=== PATIENT | male | born 1970 | race Caucasian/White ===

== ENCOUNTER 2018-02-01 09:46 | Inpatient (IN) | payer MEDICAID, OTHER ==
[2018-02-01 10:43] LABS: HEMOGLOBIN 15.2 g/dL (12.0-18.0); MEAN CELL VOLUME 97.2 fL (80.0-94.0); MEAN CORPUSCULAR HEMOGLOBIN 33.8 pg (27.0-31.0); MEAN CORPUSCULAR HGB CONC 34.7 g/dL (33.0-37.0); MEAN PLATELET VOLUME 8.5 fL (7.2-11.7); RBC 4.51 Mil/uL (4.40-5.90); RED CELL DISTRIBUTION WIDTH 13.8 % (11.5-14.5); WHITE BLOOD COUNT 5.9 K/uL (4.8-10.8)
[2018-02-01 10:48] LABS: ALB/GLOB RATIO 1.4 (1.0-2.1); ALBUMIN 4.9 g/dL (3.5-5.0); ALT/SGPT 230 U/L (21-72); AST/SGOT 336 U/L (17-59); BLOOD UREA NITROGEN 13 mg/dL (9-20); CALCIUM 9.9 mg/dl (8.6-10.4); GFR NON-AFRICAN AMERICAN > 60
[2018-02-01 11:02] LABS: SQUAMOUS EPITHIAL 1 /hpf (0-5); URINE BACTERIA RARE (<OCC); URINE BILIRUBIN 1+ (NEGATIVE); URINE BLOOD NEGATIVE (NEGATIVE); URINE CLARITY Hazy (Clear); URINE COLOR Amber (YELLOW); URINE GLUCOSE (UA) NORMAL (Normal); URINE HYALINE CAST >20 /lpf (0-2); URINE LEUKOCYTE ESTERASE 1+ Leu/uL (Negative); URINE PROTEIN 3+ mg/dL (NEGATIVE)
[2018-02-01 11:04] LABS: BARBITURATES, UR NEGATIVE (NEGATIVE); BENZODIAZEPINES, UR NEGATIVE (NEGATIVE); OPIATES, UR NEGATIVE (NEGATIVE); PHENCYCLIDINE, UR NEGATIVE (NEGATIVE)
[2018-02-01 11:07] LABS: BASO # 0.1 K/uL (0.0-0.2); BASO % 2.4 % (0.0-2.0); EOS % 0.5 % (0.0-4.0); LYMPH # 1.8 K/uL (1.0-4.3); LYMPH % 30.3 % (20.0-40.0); MONO # 0.7 K/uL (0.0-0.8); MONO % 12.2 % (0.0-10.0); NEUT # 3.2 K/uL (1.8-7.0); NEUT % 54.6 % (50.0-75.0); NRBC % 0.3 % (0.0-2.0)
--- NOTE | 2018-02-01 11:10 | C.PDOC ---
Time Seen by Provider: 02/01/18 10:06 Chief Complaint (Nursing): Substance Abuse Past Medical History Vital Signs: Last Vital Signs Temp 98.3 F 02/01/18 09:58 Pulse 95 H 02/01/18 09:58 Resp 18 02/01/18 09:58 BP 133/94 H 02/01/18 09:58 Pulse Ox 98 02/01/18 09:58 - Social History Hx Alcohol Use: Yes Hx Substance Use: No - Immunization History Hx Tetanus Toxoid Vaccination: No Hx Influenza Vaccination: No Hx Pneumococcal Vaccination: No ED Course And Treatment - Laboratory Results Result Diagrams: 02/01/18 10:27 02/01/18 10:27 O2 Sat by Pulse Oximetry: 98 Disposition - Disposition
[2018-02-01] MEDS ORDERED: Potassium Chloride 20 mEq ER Tab PO STA (11:14)
--- NOTE | 2018-02-01 11:14 | C.PDOC ---
History Of Present Illness <Mason Robbins - Last Filed: 02/01/18 18:25> <Kathe Alex - Last Filed: 02/01/18 18:33> 47 y/o male presents to ED requesting detox from ETOH. Patient reports last drink was earlier this morning and denies history of withdrawal seizures, chest pain, sob, SI/HI or any other complaints at this time. (Mason Robbins) 47 y/o male presents to ED requesting detox from ETOH. Patient reports last drink was earlier this morning. Denies history of withdrawal seizures. Notes he feels well right now. Denies drug use. Denies PMH. Denies chest pain, sob, SI/HI, hallucinations, or any other complaints at this time. (Kathe Alex) <Mason Robbins - Last Filed: 02/01/18 18:25> History Per: Patient History/Exam Limitations: no limitations Onset/Duration Of Symptoms: Days Current Symptoms Are (Timing): Still Present Suicide/Self Injury Attempted (Context): None Modifying Factor(s): Alcohol <Kathe Alex - Last Filed: 02/01/18 18:33> Time Seen by Provider: 02/01/18 10:06 Chief Complaint (Nursing): Substance Abuse Past Medical History Reviewed: Historical Data, Nursing Documentation, Vital Signs - Medical History PMH: No Chronic Diseases Surgical History: No Surg Hx Family History: States: No Known Family Hx - Social History Hx Alcohol Use: Yes Hx Substance Use: No - Immunization History Hx Tetanus Toxoid Vaccination: No Hx Influenza Vaccination: No Hx Pneumococcal Vaccination: No <Kathe Alex - Last Filed: 02/01/18 18:33> Vital Signs: Last Vital Signs Temp 98.3 F 02/01/18 16:44 Pulse 85 02/01/18 16:44 Resp 18 02/01/18 16:44 BP 127/76 02/01/18 16:44 Pulse Ox 97 02/01/18 16:44 Review Of Systems Constitutional: Negative for: Fever, Chills Cardiovascular: Negative for: Chest Pain Respiratory: Negative for: Shortness of Breath Gastrointestinal: Negative for: Nausea, Vomiting Skin: Negative for: Rash Psych: Positive for: Other (substance abuse). Negative for: Withdrawal <Kathe Alex - Last Filed: 02/01/18 18:33> Physical Exam - Physical Exam Appears: Non-toxic, No Acute Distress, Other (no tremors noted) Skin: Warm, Dry, No Rash Head: Atraumatic, Normacephalic Eye(s): bilateral: Normal Inspection, EOMI Nose: Normal Oral Mucosa: Moist Neck: Normal ROM, Supple Chest: Symmetrical Cardiovascular: Rhythm Regular Respiratory: Normal Breath Sounds, No Rales, No Rhonchi, No Wheezing Gastrointestinal/Abdominal: Soft, No Tenderness, No Guarding, No Rebound Extremity: Normal ROM Neurological/Psych: Oriented x3, Normal Speech, Normal Cognition <MicheletcoreyKathe - Last Filed: 02/01/18 18:33> ED Course And Treatment - Laboratory Results Result Diagrams: 02/01/18 10:27 02/01/18 10:27 <Mason Robbins Teresita - Last Filed: 02/01/18 18:25> - Laboratory Results Result Diagrams: 02/01/18 10:27 02/01/18 10:27 O2 Sat by Pulse Oximetry: 98 (RA) Pulse Ox Interpretation: Normal Progress Note: Case discussed with Dr Robbins who evaluated labs and agreed upon plan and treatment. Pt was instructed to have repeat UA with urologist on an outpt basis. Patient admitted to Dr. Ontiveros for ETOH dependence. <MicheletcoreyKathe - Last Filed: 02/01/18 18:33> Disposition - Disposition Disposition Time: 12:00 <Mason Robbins Teresita - Last Filed: 02/01/18 18:25> <MicheletcoreyKathe - Last Filed: 02/01/18 18:33> - Disposition Disposition: HOSPITALIZED Condition: STABLE - Clinical Impression Clinical Impression: Alcohol abuse <Mason Robbins Teresita - Last Filed: 02/01/18 18:25> - PA / [employer]ATION [employer] / Resident Statement MD/DO has reviewed & agrees with the documentation as recorded. - Scribe Statement The provider has reviewed the documentation as recorded by the Scribe <MicheletChon [email or web address] - Last Filed: 02/01/18 18:33> - Scribe Statement Kathy Valenzuela All medical record entries made by the Scribe were at my direction and personally dictated by me. I have reviewed the chart and agree that the record accurately reflects my personal performance of the history, physical exam, medical decision making, and the department course for this patient. I have also personally directed, reviewed, and agree with the discharge instructions and disposition. (Mason Robbins) Kathy Valenzuela All medical record entries made by the Scribe were at my direction and personally dictated by me. I have reviewed the chart and agree that the record accurately reflects my personal performance of the history, physical exam, medical decision making, and the department course for this patient. I have also personally directed, reviewed, and agree with the discharge instructions and disposition. (Kathe Alex)
[2018-02-01] MEDS ORDERED: Potassium Chloride 20 mEq ER Tab PO ONE (11:30)
[2018-02-01] MEDS ORDERED: Tmp-Smz 800 mg-160 mg DS Tab PO STA (12:23)
[2018-02-01] MEDS ORDERED: Tmp-Smz 800 mg-160 mg DS Tab ONE (12:28)
--- NOTE | 2018-02-01 14:15 | PCM.BM ---
<Brooklynn Kennedy - Last Filed: 02/01/18 14:15> Treatment Plan Problems - Problems identified on initial assessmt potential for alcohol withdrawals Date Initiated: 02/01/18 Assessment reference: NA Status: Active Treatment assets and liabiliti Patient Assests: adapts well, cooperative, insightful, motivated, ADL independent, physically healthy, negotiates basic needs Patient Liabilities: substance abuse - Milieu Protocol Maintain good personal hygiene: daily Encourage regular showers, daily Remind patient to perform daily oral care, daily Assist patient to perform ADL's Conduct patient checks and document Observation sheet: Q15 minutes Maintain personal safety: every shift Educate patient to report safety concerns to staff, every shift Monitor environment for contraband/sharps Medication safety: Monitor for expected outcome, potential side effects: every shift, Assess barriers to learning: every shift, Assess readiness for medication education: every shift <Juanita Ibarra - Last Filed: 02/02/18 13:37> - Diagnosis (1) Alcohol use disorder, severe, dependence Status: Acute Interventions: 02/02/18 13:38 * Assess 7x/week regarding severity of withdrawal * Educate regarding risks, benefits, side effects and alternatives of medications * Use Motivational Interviewing for abstinence * Use CBT for relapse prevention * Medication management for withdrawal symptoms * Encourage medication assisted treatment * <Stephenie Lee - Last Filed: 02/03/18 14:21> Family Contact Family involvement: Famliy/SO not involved - Goals for Treatment Patient goals for treatment: Complete detox and apply for inpatient or outpatient treatment program. Discharge/Continuing Care - Education Needs Education Needs: Patient Medication, Patient Diagnosis/Disease Process, Patient Coping Skills, Patient Anger Management skills, Patient Placement options, Patient Community resources, Patient Other (grief coping) - Discharge Discharge Criteria: Free of agitation, Normal sleep pattern, Ability to care for self, No longer exhibiting s/s of withdrawal, Reduction of target symptoms Discharge to:: Other - Additional Comments 02/03/18 14:20 Pt. is undecided whether he wants outpatient or inpatient but will work with counseling staff when a determination is made. - Treatment Team Participation Discussed with Family/SO: No Was Patient/Family/SO present at Treatment Team Meeting: Yes
--- NOTE | 2018-02-01 17:15 | PCM.PSYCH ---
Initial Psychiatric Evaluation - Initial Psychiatric Evaluation Type of Admission: Voluntary Legal Status: Capacity Chief Complaint (in patient's own words): "I want detox from alcohol" History of Present Illness and Precipitating Events: This is a 47-year-old male, with children, who lives temporarily with his parents in [place]. He is employed but he has taken a personal leave of absence due to medical reasons. Patient is here for detox from alcohol. He states that he has been drinking a fifth of vodka every day in the last 4 years. He smokes 6-10 cigarettes per day with the alcohol. He denies any other drug use. Patient states that he feels well today. However, he complains about palpitations, dizziness, hot and cold flashes, tremor of the extremities when he does not drink alcohol. He reports that all of his symptoms disappear when he starts drinking. Patient reports that he tried detox once in August, but he was not successful. He denies any past rehabilitation or psychiatric hospitalization. He reports that he had his last drink this morning. Patient reports of withdrawal symptoms including abdominal cramps, anxiety, headaches and sweating. Patient reports irritability but he denies any suicidal ideation or any homicidal ideation. He denies any manic symptoms. He denies any auditory or visual hallucinations or any psychotic symptoms. Current Medications: Active Medications Generic Name Dose Route Start Last Admin Trade Name Freq PRN Reason Stop Dose Admin Folic Acid 1 mg 02/02/18 10:00 Folic Acid PO DAILY NANCIE Lorazepam 2 mg 02/01/18 16:30 Ativan PO 02/06/18 16:29 Q4 NANCIE Taper Lorazepam 1 mg 02/01/18 16:28 Ativan PO Q4H PRN Symptoms of alcohol withdrawl Multivitamins 1 tab 02/02/18 10:00 Hexavitamin PO DAILY NANCIE Thiamine HCl 100 mg 02/02/18 10:00 Vitamin B1 Tab PO DAILY NANCIE Trazodone HCl 50 mg 02/01/18 16:28 Desyrel PO HS PRN Insomnia Past Psychiatric History - Past Psychiatric History Previous Treatment History: Inpatient Pertinent Medical Hx (Current Medical&Sleep Prob, Allergies): Allergies Allergy/AdvReac Type Severity Reaction Status Date / Time No Known Allergies Allergy Verified 02/01/18 10:04 No Known Home Med 02/01/18 Patient denies any past medical history. Review of Systems - Review of Systems All systems: reviewed and no additional remarkable complaints except - Psychiatric Psychiatric: Anxiety, Irritability. absent: Suicidal Ideation Mental Status Examination - Personal Presentation Personal Presentation: Looks stated age - Affect Affect: Constricted - Motor Activity Motor Activity: Calm - Reliability in Providing Information Reliability in Providing Information: Fair - Speech Speech: Organized - Mood Mood: Anxious - Formal Thought Process Formal Thought Process: No Impairment - Obsessions/Compulsions Obsessions: No Compulsions: No - Cognitive Functions Orientation: Person, Place, Situation, Time Sensorium: Alert Attention/Concentration: Attentive Abstract Thinking: [place] Estimate of Intelligence: Below average Judgement: Imparied, as evidence by: Poor judgement, Intact, as evidence by: Insight regarding need for hospitalization - Risk Risk: Withdrawal, Diminished functioning - Limitations Limitations: Living alone DSM 5 DX - DSM 5 DSM 5 Diagnosis: Alcohol use d/o- severe Alcohol withdrawal - Recommended/Plan of Treatment Treatment Recommendations and Plan of Treatment: Alcohol use d/o- severe Alcohol withdrawal CBT Attend groups and activities Supportive therapy and psychoeducation [place] for abstinence Encourage MAT Refer to rehab or IOP, and self-help groups Smoking cessation with [place] Nicotine patch if needed Ativan taper Gabapentin for augmentation if needed As needed medications All risks, benefits and alternatives of the meds discussed, and the pt agreed and understood. - Smoking Cessation Smoking Cessation Initiated: No
[2018-02-02] MEDS: Multiple Vitamins Tab PO SCH (10:21)
--- NOTE | 2018-02-02 13:32 | PCM.PYCHPN ---
Psychiatric Progress Note - Psychiatric Progress Note Patient seen today, length of contact: 16 min Patient Chief Complaint: "I'm sick" Problems Identified/Issues Discussed: The pt is seen, chart reviewed, case discussed with staff. The pt is compliant with medications and reports no side-effects. Symptoms are improving but needs more time to stabilize. Pt attends groups and activities. Support given, psycho-education provided. After care discussed. He wants to try rehab first. Medication Change: Yes (detox changes daily) Medical Record Reviewed: Yes Mental Status Examination - Cognitive Function Orientation: Person, Place, Situation, Time Memory: Impaired Attention: WNL Concentration: Poor Association: WNL Fund of Knowledge: WNL - Mood Mood: Anxious - Affect Affect: Constricted - Speech Speech: Appropriate - Formal Thought Process Formal Thought Process: No Impairment - Suicidal Ideation Suicidal Ideation: No - Homicidal Ideation Homicidal Ideation: No Goal/Treatment Plan - Goal/Treatment Plan Need for Continued Stay: Discharge may exacerbated symptoms, Severe functional impairment Progress Toward Problem(s) and Goals/Treatment Plan: CBT Attend groups and activities Supportive therapy and psychoeducation [place] for abstinence Encourage MAT Refer to rehab or IOP, and self-help groups Smoking cessation with [place] Nicotine patch if needed Ativan taper Gabapentin for augmentation if needed As needed medications All risks, benefits and alternatives of the meds discussed, and the pt agreed and understood. - Smoking Cessation Smoking Cessation Initiated: Yes
[2018-02-03] MEDS: Multiple Vitamins Tab PO SCH (09:08)
--- NOTE | 2018-02-03 12:20 | PCM.PYCHPN ---
Psychiatric Progress Note - Psychiatric Progress Note Patient seen today, length of contact: 16 min Patient Chief Complaint: "I'm not well" Problems Identified/Issues Discussed: The pt is seen, chart reviewed, case discussed with staff. He was somewhat confused The pt is compliant with medications and reports no side-effects. Symptoms are improving but needs more time to stabilize. After care discussed, support and psychoeducation given. Medication Change: Yes (detox changes daily) Medical Record Reviewed: Yes Mental Status Examination - Cognitive Function Orientation: Person, Place, Situation Memory: Impaired Attention: WNL Concentration: Poor Association: WNL Fund of Knowledge: WNL - Mood Mood: Anxious - Affect Affect: Constricted - Speech Speech: Appropriate - Formal Thought Process Formal Thought Process: No Impairment - Suicidal Ideation Suicidal Ideation: No - Homicidal Ideation Homicidal Ideation: No Goal/Treatment Plan - Goal/Treatment Plan Need for Continued Stay: Discharge may exacerbated symptoms, Severe functional impairment Progress Toward Problem(s) and Goals/Treatment Plan: CBT Attend groups and activities Supportive therapy and psychoeducation [place] for abstinence Encourage MAT Refer to rehab or IOP, and self-help groups Smoking cessation with [place] Nicotine patch if needed Ativan taper Gabapentin for augmentation if needed As needed medications All risks, benefits and alternatives of the meds discussed, and the pt agreed and understood.
[2018-02-03 14:50] LABS: ALB/GLOB RATIO 1.4 (1.0-2.1); ALBUMIN 4.7 g/dL (3.5-5.0); ALT/SGPT 137 U/L (21-72); AST/SGOT 128 U/L (17-59); BLOOD UREA NITROGEN 12 mg/dL (9-20); CALCIUM 11.2 mg/dl (8.6-10.4); GFR NON-AFRICAN AMERICAN > 60
[2018-02-04] MEDS: Multiple Vitamins Tab PO SCH (09:27)
[2018-02-05] MEDS: Multiple Vitamins Tab PO SCH (09:22)
[2018-02-06] MEDS: Multiple Vitamins Tab PO SCH (09:50)
--- NOTE | 2018-02-06 18:49 | PCM.PYCHPN ---
Psychiatric Progress Note - Psychiatric Progress Note Patient seen today, length of contact: 15 minutes Patient Chief Complaint: I'm feeling much better. Problems Identified/Issues Discussed: Patient seen, chart reviewed, case discussed with the staff. Issues related to illness and treatment were discussed with the patient and staff. Reported compliant with treatment with no adverse affects. Tolerating treatment very well. Patient reported feeling little better with the treatment. Calm and cooperative. Awake, alert and oriented 3. No psychomotor activity, good eye contact, memory intact. Aftercare discussed with the patient. Denied any delusions, auditory or visual hallucinations, suicidal ideations or homicidal ideations at the time of evaluation. Medical Problems: None reported Diagnostic Results: Reviewed DSM 5 Symptoms Update: Improving with treatment Medication Change: No Medical Record Reviewed: Yes Mental Status Examination - Cognitive Function Orientation: Person, Place, Situation, Time Memory: Intact Attention: WNL Concentration: WNL Association: WNL Fund of Knowledge: [facility] Decription of patient's judgement and insights: Fair - Mood Mood: Neutral - Affect Affect: Other (Appropriate) - Speech Speech: Appropriate - Formal Thought Process Formal Thought Process: No Impairment Psychotic Thoughts and Behaviors: None - Suicidal Ideation Suicidal Ideation: No - Homicidal Ideation Homicidal Ideation: No Goal/Treatment Plan - Goal/Treatment Plan Need for Continued Stay: Remain at risks for inpatient hospitalization, Discharge may exacerbated symptoms, Severe functional impairment Progress Toward Problem(s) and Goals/Treatment Plan: Patient education. Supportive therapy. CBT for relapse prevention. [place] for abstinence. Continue treatment as before. Patient will go to [facility] for follow-up care after discharge from the hospital. Estimated Date of D/C: 02/07/18 - Smoking Cessation Smoking Cessation Initiated: Yes
--- NOTE | 2018-02-06 22:28 | PCM.PYCHPN ---
Psychiatric Progress Note - Psychiatric Progress Note Patient seen today, length of contact: 18 min Patient Chief Complaint: "I'm tired" Problems Identified/Issues Discussed: The pt is seen, chart reviewed, case discussed with staff. Support given, CBT and PA used briefly No new symptoms reported, improving slowly and needs more time Still somewaht confused - likely at risk for DT, meds adjusted No SEs from medications, risks discussed. After care discussed Medication Change: Yes (detox changes daily) Medical Record Reviewed: Yes Mental Status Examination - Cognitive Function Orientation: Person, Place, Situation Memory: Impaired Attention: WNL Concentration: Poor Association: WNL Fund of Knowledge: WNL - Mood Mood: Anxious - Affect Affect: Constricted - Speech Speech: Appropriate - Formal Thought Process Formal Thought Process: No Impairment - Suicidal Ideation Suicidal Ideation: No - Homicidal Ideation Homicidal Ideation: No Goal/Treatment Plan - Goal/Treatment Plan Need for Continued Stay: Discharge may exacerbated symptoms, Severe functional impairment Progress Toward Problem(s) and Goals/Treatment Plan: CBT Attend groups and activities Supportive therapy and psychoeducation [place] for abstinence Encourage MAT Refer to rehab or IOP, and self-help groups Smoking cessation with [place] Nicotine patch if needed Ativan taper Gabapentin for augmentation if needed As needed medications All risks, benefits and alternatives of the meds discussed, and the pt agreed and understood. Estimated Date of D/C: 02/07/18
--- NOTE | 2018-02-07 00:45 | CP.PCM.HP ---
<Sindhu Mitchell - Last Filed: 02/07/18 07:40> History of Present Illness - History of Present Illness History of Present Illness: History and Physical - Hospitalist Service HPI: Patient is a 47 year old male with past medical history of alcohol dependence who presented to the hospital requesting detox from alcohol. His last drink was the morning of 02/01/18. While on the detox unit, rapid response was called for new onset seizure (refer to LEGAL SPECIALIST note for more details). Patient was given Ativan 2mg IM x 1. Patient does not have a history of seizure disorder. Post seizure activity, patient states that he wasn't feeling well. He does not recall the events that occurred. He does admit to having pain on the right side of his tongue. Denies any loss of bowel or bladder function. Patient states that he has never had a seizure in the past. Denies headaches, dizziness, cp, palpitations, son, abdominal pain, urinary symptoms, changes in bowel habits. PMD: None Allergies: NKDA Medications: Denies Medical History: Alcohol dependence Surgical History: Denies Social History: Smokes 6 cig/day for many years, a fifth of vodka every day in the last 4 years, denies drug use; recently Family History: Denies Present on Admission - Present on Admission Any Indicators Present on Admission: No Past Patient History - Past Social History Smoking Status: Light Smoker < 10 Cigarettes Daily - CARDIAC Hx Cardiac Disorders: No Hx Hypertension: No - PULMONARY Hx Tuberculosis: No - NEUROLOGICAL HX Cerebrovascular Accident: No Hx Seizures: No - HEMATOLOGICAL/ONCOLOGICAL Hx Cancer: No Hx Human Immunodeficiency Virus (HIV): No - MUSCULOSKELETAL/RHEUMATOLOGICAL Hx Falls: No - GENITOURINARY/GYNECOLOGICAL Hx Sexually Transmitted Disorders: No - PSYCHIATRIC Hx Substance Use: No - SURGICAL HISTORY Hx Surgeries: Yes Other/Comment: groin cyst excision - ANESTHESIA Hx Anesthesia: Yes Hx Anesthesia Reactions: No Hx Malignant Hyperthermia: No Meds Allergies/Adverse Reactions: Allergies Allergy/AdvReac Type Severity Reaction Status Date / Time No Known Allergies Allergy Verified 02/01/18 10:04 Physical Exam - Constitutional Appears: Non-toxic, No Acute Distress - Head Exam Head Exam: ATRAUMATIC, NORMAL INSPECTION, NORMOCEPHALIC - Eye Exam Eye Exam: EOMI, Normal appearance Pupil Exam: NORMAL ACCOMODATION - ENT Exam ENT Exam: Mucous Membranes Moist Additional comments: Right lateral side of tongue with small abrasion, not actively bleeding - Neck Exam Neck exam: Positive for: Full Rom - Respiratory Exam Respiratory Exam: Clear to Auscultation Bilateral, NORMAL BREATHING PATTERN. absent: Rales, Rhonchi, Wheezes - Cardiovascular Exam Cardiovascular Exam: REGULAR RHYTHM, +S1, +S2. absent: Systolic Murmur - GI/Abdominal Exam GI & Abdominal Exam: Normal Bowel Sounds, Soft. absent: Guarding, Rebound, Rigid, Tenderness - Extremities Exam Extremities exam: Positive for: normal inspection, pedal pulses present - Back Exam Back exam: NORMAL INSPECTION - Neurological Exam Neurological exam: Alert, CN II-XII Intact, Oriented x3 - Psychiatric Exam Psychiatric exam: Normal Affect, Normal Mood - Skin Skin Exam: Dry, Normal Color, Warm Results - Vital Signs Recent Vital Signs: Last Vital Signs Temp 98.6 F 02/06/18 16:42 Pulse 87 02/06/18 16:42 Resp 18 02/06/18 16:42 BP 130/80 02/06/18 16:42 Pulse Ox 99 02/06/18 16:42 - Labs Result Diagrams: 02/07/18 02:41 02/07/18 02:41 Assessment & Plan - Assessment and Plan (Free Text) Assessment: A/P: Patient is a 47 year old male with past medical history of alcohol dependence who was admitted 02/01/18 for detox from alcohol who now presents with new onset seizure. New Onset Seizure -Transfer to Telemetry -STAT CBC, CMP, Mg, Phos ordered -CT head w/o contrast ordered -Ativan 2mg Q6H IVP prn seizure activity -NS @ 100cc/hr -EEG, EKG ordered -Neurology on consult, Dr Roa, help appreciated -Seizure precautions, aspiration precautions, Neuro checks q4H Alcohol dependence/Alcohol withdrawal -Alcohol levels was 287 on admission -Continue Thiamine 100mg PO daily, Folic acid 1mg PO daily, Multivitamins -[facility] protocol -Management per psych team Elevated LFTs -Likely secondary to alcohol abuse -Trending down -Avoid hepatotoxic agents Plan discussed with Dr Corrie Mitchell DO PGY-2 <Negrito Denton - Last Filed: 02/07/18 10:18> Results - Vital Signs Recent Vital Signs: Last Vital Signs Temp 98.2 F 10/01/18 09:23 Pulse 80 02/07/18 09:23 Resp 20 02/07/18 09:23 BP 104/69 02/07/18 09:23 Pulse Ox 95 02/07/18 09:23 - Labs Result Diagrams: 02/07/18 02:41 02/07/18 02:41 Labs: Laboratory Results - last 24 hr 02/07/18 02/07/18 02/07/18 02:02 02:41 02:41 WBC 8.1 RBC 3.61 L Hgb 12.4 D Hct 35.6 MCV 98.6 H MCH 34.2 H MCHC 34.7 RDW 13.6 Plt Count 279 D MPV 7.8 Neut % (Auto) 68.1 Lymph % (Auto) 11.1 L [place] % (Auto) 19.6 H Eos % (Auto) 0.4 Baso % (Auto) 0.8 Neut # (Auto) 5.5 Lymph # (Auto) 0.9 L [place] # (Auto) 1.6 H Eos # (Auto) 0.0 Baso # (Auto) 0.1 Sodium 140 Potassium 4.6 Chloride 105 Carbon Dioxide 24 Anion Gap 16 BUN 15 Creatinine 0.6 L Est GFR ( Amer) > 60 Est GFR (Non-Af Amer) > 60 POC Glucose (mg/dL) 115 H Random Glucose 112 H Calcium 9.8 Phosphorus 2.5 Magnesium 1.6 Total Bilirubin 0.6 AST 60 H D ALT 94 H D Alkaline Phosphatase 64 Total Protein 7.0 Albumin 4.0 Globulin 3.0 Albumin/Globulin Ratio 1.3 Assessment & Plan - Date & Time Date: 02/07/18 (I have seen and examined the patient. I agree with the findings and plan of care as documented by Dr. Mitchell. Patient in detox due to alcohol abuse. Rapid response called due to new onset seizure. Transfer to hospitalist service. Ativan prn. Consult to neuro. Consult to psych. Monitor for acute changes.) Time: 10:15 Attending/Attestation - Attestation I have personally seen and examined this patient.: Yes I have fully participated in the care of the patient.: Yes I have reviewed all pertinent clinical information: Yes
[2018-02-07 01:38] VITALS: RESP 20
--- NOTE | 2018-02-07 02:34 | PCM.RRT ---
AQUATIC FACILITY MANAGER Nurses Assessment - Situation Date: 02/07/18 Time AQUATIC FACILITY MANAGER was called: 12:16 AQUATIC FACILITY MANAGER Responder Arrival Time:: 12:18 AQUATIC FACILITY MANAGER Location:: Med/Detox Room Number: 762A AQUATIC FACILITY MANAGER Reason for Call: Change in Mental Status AQUATIC FACILITY MANAGER Called By: RN - IV IV Inserted during AQUATIC FACILITY MANAGER?: No - Respiratory AQUATIC FACILITY MANAGER Delivery Method: Room Air Was the Patient Placed on a Ventilator?: No - Medication Medications Administered During AQUATIC FACILITY MANAGER: Ativan 2mg IM - Diagnostic Test Ordered EKG: Yes Chest X-Ray: No CT Scan: Yes - Stat Labs Ordered AQUATIC FACILITY MANAGER Stat Labs Ordered: CBC AQUATIC FACILITY MANAGER Other Labs Ordered: Magnesium, Phosphorus, CMP CPR started during AQUATIC FACILITY MANAGER?: No - Vital Signs Vital Signs: Rapid Response Vital Sign Blood Pressure 138/84 Pulse Rate 130 I.Reason for AQUATIC FACILITY MANAGER - A) Acute Change in Patient: Subjective: Rapid Response Note Rapid response was called at 12:16 am for change in mental status. When Rapid response team arrived patient was on the floor having a seizure. Patient was unresponsive and having full body shakes. Order was given to administer Ativan 2mg IM x 1. Post-seizure, when asked patient was not aware of what happened. He is alert and oriented x 3. He states that he has never had a seizure before in the past. We will transfer patient to telemetry. - Respiratory Oxygen Delivery Method: Room Air - Constitutional Appears: No Acute Distress - Head Head Exam: ATRAUMATIC, NORMAL INSPECTION - Eyes Eye Exam: EOMI, Normal appearance - Respiratory Exam Respiratory Exam: Clear to Ausculation Bilateral, NORMAL BREATHING PATTERN. absent: Rales, Rhonchi, Wheezes - Cardiovascular Exam Cardiovascular Exam: REGULAR RHYTHM, +S1, +S2. absent: Murmur - GI/Abdominal Exam GI & Abdominal Exam: Soft. absent: Guarding, Rigid, Tenderness, Rebound - Neurological Exam Neurological Exam: Alert, Awake, CN II-XII Intact, Oriented x3 - Extremities Exam Extremities Exam: Normal Inspection Plan - Assessment of Findings&Treatment Plan A/P: 47 year old male with past medical history of alcohol dependence who was admitted to detox on 02/01 for alcohol withdrawal. Patient now with witnessed new onset seizure. Denies history of seizure in the past. -We will transfer patient to telemetry -STAT labs ordered: CBC, CMP, Mg, Phos -CT head, EKG and EEG ordered -Continue Ativan 2mg IVP Q6H prn seizure activity -Neurology on consult, Dr Roa, help appreciated Plan discussed with Dr Corrie Mitchell DO PGY-2
[2018-02-07 02:43] LABS: BASO # 0.1 K/uL (0.0-0.2); BASO % 0.8 % (0.0-2.0); EOS % 0.4 % (0.0-4.0); HEMOGLOBIN 12.4 g/dL (12.0-18.0); LYMPH # 0.9 K/uL (1.0-4.3); LYMPH % 11.1 % (20.0-40.0); MEAN CELL VOLUME 98.6 fL (80.0-94.0); MEAN CORPUSCULAR HEMOGLOBIN 34.2 pg (27.0-31.0); MEAN CORPUSCULAR HGB CONC 34.7 g/dL (33.0-37.0); MEAN PLATELET VOLUME 7.8 fL (7.2-11.7); MONO # 1.6 K/uL (0.0-0.8); MONO % 19.6 % (0.0-10.0); NEUT # 5.5 K/uL (1.8-7.0); NEUT % 68.1 % (50.0-75.0); RBC 3.61 Mil/uL (4.40-5.90); RED CELL DISTRIBUTION WIDTH 13.6 % (11.5-14.5); WHITE BLOOD COUNT 8.1 K/uL (4.8-10.8)
[2018-02-07 03:12] LABS: ALB/GLOB RATIO 1.3 (1.0-2.1); ALT/SGPT 94 U/L (21-72); AST/SGOT 60 U/L (17-59); BLOOD UREA NITROGEN 15 mg/dL (9-20); CALCIUM 9.8 mg/dl (8.6-10.4); GFR NON-AFRICAN AMERICAN > 60
[2018-02-07] MEDS: Magnesium Sulfate 1 gm in D5W 1 GM/100 ML BAG IVPB SCH ×2 (04:16→05:09)
[2018-02-07] MEDS: Sodium Chloride 0.9% 1,000 ML IV SCH ×2 (04:16→04:22)
--- NOTE | 2018-02-07 09:37 | CT ---
Date of service: 02/07/2018 PROCEDURE: CT HEAD WITHOUT CONTRAST. HISTORY: New onset seizure COMPARISON: None available. TECHNIQUE: Axial computed tomography images were obtained through the head/brain without intravenous contrast. Radiation dose: Total exam DLP = 1151 mGy-cm. This CT exam was performed using one or more of the following dose reduction techniques: Automated exposure control, adjustment of the mA and/or kV according to patient size, and/or use of iterative reconstruction technique. FINDINGS: HEMORRHAGE: No intracranial hemorrhage. BRAIN: No mass effect or edema. No atrophy or chronic microvascular ischemic changes. Punctate right basal ganglia calcification. VENTRICLES: Unremarkable. No hydrocephalus. CALVARIUM: Unremarkable. PARANASAL SINUSES: Unremarkable as visualized. No significant inflammatory changes. MASTOID AIR CELLS: Unremarkable as visualized. No inflammatory changes. OTHER FINDINGS: None. IMPRESSION: No acute intracranial abnormality. If symptoms persist, consider correlation with MRI.
[2018-02-07] MEDS: Multiple Vitamins Tab PO SCH (10:29)
--- NOTE | 2018-02-07 10:30 | CP.PCM.CON ---
<RobsonRaffi - Last Filed: 02/07/18 15:03> History of Present Illness - History of Present Illness History of Present Illness: Neurology Consult Note: Dr. Roa's Service 47 year old male with a past medical history of alcohol abuse who was admitted for seizures. Patient initially came into the hospital for detox from alcohol. Patient was in the process of detoxing from alcohol when last night he reported feeling anxious. The next thing he remembers is waking up in the bed. He briana es losing bowel or bladder function, but does reports biting his tongue during the seizure. He reports this being his first seizure. He denies any chest pain, shortness of breath, fevers, chills, nausea, vomiting, palpitations, or any other complaints. PMD: None Allergies: NKDA Medications: Denies Medical History: Alcohol dependence Surgical History: Denies Social History: Smokes 6 cig/day for many years, a fifth of vodka every day in the last 4 years, denies drug use; recently Family History: Denies Review of Systems - Constitutional Constitutional: absent: Daytime Sleepiness, Headache - EENT Eyes: absent: Blurred Vision, Discharge, Loss of Peripheral Vision, Loss of Vision Ears: absent: Ear Discharge, Dizziness Nose/Mouth/Throat: absent: Nasal Congestion, Nose Pain, Odynophagia, Neck Pain - Cardiovascular Cardiovascular: absent: Chest Pain, Leg Edema, Pedal Edema, Syncope - Respiratory Respiratory: absent: Dyspnea, Hemoptysis - Gastrointestinal Gastrointestinal: absent: Dyspepsia, Loose Stools, Vomiting - Genitourinary Genitourinary: absent: Difficulty Urinating, Nocturia, Urinary Urgency, Bladder Distension - Integumentary Integumentary: absent: New Lesions, Swelling, Unusual Bruising - Neurological Neurological: absent: Tingling Additional comments: Seizures - Endocrine Endocrine: absent: Change in Body Appearance, Deepening of Voice, Increase in Ring/Shoe/Hat Size, Polydipsia, Polyphagia, Polyuria Past Patient History - Past Medical History & Family History Past Medical History?: Yes - Past Social History Smoking Status: Light Smoker < 10 Cigarettes Daily - CARDIAC Hx Cardiac Disorders: No Hx Hypertension: No - PULMONARY Hx Tuberculosis: No - NEUROLOGICAL HX Cerebrovascular Accident: No Hx Seizures: No - HEENT Hx HEENT Problems: No - RENAL Hx Chronic Kidney Disease: No - ENDOCRINE/METABOLIC Hx Endocrine Disorders: No - HEMATOLOGICAL/ONCOLOGICAL Hx Cancer: No Hx Human Immunodeficiency Virus (HIV): No - INTEGUMENTARY Hx Dermatological Problems: No - MUSCULOSKELETAL/RHEUMATOLOGICAL Hx Falls: No - GASTROINTESTINAL Hx Gastrointestinal Disorders: No - GENITOURINARY/GYNECOLOGICAL Hx Sexually Transmitted Disorders: No - PSYCHIATRIC Hx Substance Use: No - SURGICAL HISTORY Hx Surgeries: Yes Other/Comment: groin cyst excision - ANESTHESIA Hx Anesthesia: Yes Hx Anesthesia Reactions: No Hx Malignant Hyperthermia: No Meds Allergies/Adverse Reactions: Allergies Allergy/AdvReac Type Severity Reaction Status Date / Time No Known Allergies Allergy Verified 02/01/18 10:04 - Medications Medications: Current Medications Folic Acid (Folic Acid) 1 mg PO DAILY [facility] Last Admin: 02/07/18 10:29 Dose: 1 mg Hydroxyzine HCl (Atarax) 50 mg PO Q6H PRN PRN Reason: Anxiety Last Admin: 02/06/18 22:25 Dose: 50 mg Sodium Chloride (Sodium Chloride 0.9%) 1,000 mls @ 100 mls/hr IV .Q10H [facility] Last Admin: 02/07/18 04:22 Dose: Not Given Ibuprofen (Motrin Tab) 600 mg PO Q6H PRN PRN Reason: Pain, moderate (4-7) Lorazepam (Ativan) 1 mg PO Q4H PRN PRN Reason: Symptoms of alcohol withdrawl Last Admin: 02/06/18 09:50 Dose: 1 mg Lorazepam (Ativan) 2 mg PO Q24H [facility]ANCIE; Taper Stop: 02/07/18 11:59 Last Admin: 02/06/18 12:30 Dose: Not Given Lorazepam (Ativan) 2 mg IVP Q6H PRN PRN Reason: Seizure activity Multivitamins (Hexavitamin) 1 tab PO DAILY [facility] Last Admin: 02/07/18 10:29 Dose: 1 tab Nicotine (Nicoderm Cq) 1 patch TD DAILY [facility] Last Admin: 02/06/18 09:49 Dose: 1 patch Pneumococcal Polyvalent Vaccine (Pneumovax 23 Vaccine) 0.5 ml IM .ONCE ONE Stop: 02/09/18 14:01 Thiamine HCl (Vitamin B1 Tab) 100 mg PO DAILY [facility] Last Admin: 02/07/18 10:29 Dose: 100 mg Trazodone HCl (Desyrel) 50 mg PO HS PRN PRN Reason: Insomnia Last Admin: 02/06/18 22:24 Dose: 50 mg Physical Exam - Head Exam Head Exam: ATRAUMATIC, NORMAL INSPECTION - Eye Exam Eye Exam: EOMI, Normal appearance, PERRL Pupil Exam: NORMAL ACCOMODATION, PERRL - ENT Exam ENT Exam: Mucous Membranes Moist, Normal Oropharynx - Respiratory Exam Respiratory Exam: Clear to Auscultation Bilateral, NORMAL BREATHING PATTERN. absent: Respiratory Distress - Cardiovascular Exam Cardiovascular Exam: REGULAR RHYTHM, +S1, +S2 - GI/Abdominal Exam GI & Abdominal Exam: Normal Bowel Sounds, Soft. absent: Tenderness - Neurological Exam Neurological exam: Alert, CN II-XII Intact, Oriented x3 - Psychiatric Exam Psychiatric exam: Normal Affect, Normal Mood - Skin Skin Exam: Dry, Intact, Normal Color Results - Vital Signs Recent Vital Signs: Last Vital Signs Temp 98.2 F 02/07/18 09:23 Pulse 80 02/07/18 09:23 Resp 20 02/07/18 09:23 BP 104/69 02/07/18 09:23 Pulse Ox 95 02/07/18 09:23 - Labs Result Diagrams: 02/07/18 02:41 02/07/18 02:41 Labs: Laboratory Results - last 24 hr 02/07/18 02/07/18 02/07/18 02:02 02:41 02:41 WBC 8.1 RBC 3.61 L Hgb 12.4 D Hct 35.6 MCV 98.6 H MCH 34.2 H MCHC 34.7 RDW 13.6 Plt Count 279 D MPV 7.8 Neut % (Auto) 68.1 Lymph % (Auto) 11.1 L [place] % (Auto) 19.6 H Eos % (Auto) 0.4 Baso % (Auto) 0.8 Neut # (Auto) 5.5 Lymph # (Auto) 0.9 L [place] # (Auto) 1.6 H Eos # (Auto) 0.0 Baso # (Auto) 0.1 Sodium 140 Potassium 4.6 Chloride 105 Carbon Dioxide 24 Anion Gap 16 BUN 15 Creatinine 0.6 L Est GFR ( Amer) > 60 Est GFR (Non-Af Amer) > 60 POC Glucose (mg/dL) 115 H Random Glucose 112 H Calcium 9.8 Phosphorus 2.5 Magnesium 1.6 Total Bilirubin 0.6 AST 60 H D ALT 94 H D Alkaline Phosphatase 64 Total Protein 7.0 Albumin 4.0 Globulin 3.0 Albumin/Globulin Ratio 1.3 Assessment & Plan - Assessment and Plan (Free Text) Assessment: 47 year old male with a past medical history of etoh abuse admitted for seizures. Plan: 1.Seizures Likely2/[address] Head [address]: negative EEG ordered. Will follow up with results Seizure precautions, Fall precautions, CIWA protocol Plan discussed with Dr. Roa. Raffi Chance, PGY-2 <Genoveva Roa - Last Filed: 02/08/18 12:42> Meds - Medications Medications: Current Medications Folic Acid (Folic Acid) 1 mg PO DAILY [facility] Last Admin: 02/08/18 10:57 Dose: 1 mg Gabapentin (Neurontin) 300 mg PO TID [facility] Last Admin: 02/08/18 10:57 Dose: 300 mg Hydroxyzine HCl (Atarax) 50 mg PO Q6H PRN PRN Reason: Anxiety Last Admin: 02/06/18 22:25 Dose: 50 mg Sodium Chloride (Sodium Chloride 0.9%) 1,000 mls @ 100 mls/hr IV .Q10H [facility] Last Admin: 02/08/18 04:32 Dose: 100 mls/hr Ibuprofen (Motrin Tab) 600 mg PO Q6H PRN PRN Reason: Pain, moderate (4-7) Lorazepam (Ativan) 1 mg PO Q4H PRN PRN Reason: Symptoms of alcohol withdrawl Last Admin: 02/06/18 09:50 Dose: 1 mg Lorazepam (Ativan) 2 mg IVP Q6H PRN PRN Reason: Seizure activity Multivitamins (Hexavitamin) 1 tab PO DAILY [facility] Last Admin: 02/08/18 10:58 Dose: 1 tab Nicotine (Nicoderm Cq) 1 patch TD DAILY [facility] Last Admin: 02/08/18 11:29 Dose: 1 patch Pneumococcal Polyvalent Vaccine (Pneumovax 23 Vaccine) 0.5 ml IM .ONCE ONE Stop: 02/09/18 14:01 Thiamine HCl (Vitamin B1 Tab) 100 mg PO DAILY [facility] Last Admin: 02/08/18 10:58 Dose: 100 mg Trazodone HCl (Desyrel) 50 mg PO HS PRN PRN Reason: Insomnia Last Admin: 02/06/18 22:24 Dose: 50 mg Results - Vital Signs Recent Vital Signs: Last Vital Signs Temp 98.3 F 02/08/18 07:00 Pulse 85 02/08/18 07:00 Resp 20 02/08/18 07:00 BP 136/96 H 02/08/18 07:00 Pulse Ox 98 02/08/18 07:00 - Labs Result Diagrams: 02/08/18 07:50 02/08/18 07:50 Labs: Laboratory Results - last 24 hr 02/08/18 02/08/18 02/08/18 06:11 07:50 07:50 WBC 8.6 RBC 3.53 L Hgb 12.1 Hct 35.1 MCV 99.3 H MCH 34.4 H MCHC 34.6 RDW 13.4 Plt Count 325 MPV 7.3 Neut % (Auto) 48.6 L Lymph % (Auto) 22.7 [place] % (Auto) 25.3 H Eos % (Auto) 1.3 Baso % (Auto) 2.1 H Neut # (Auto) 4.2 Lymph # (Auto) 2.0 [place] # (Auto) 2.2 H Eos # (Auto) 0.1 Baso # (Auto) 0.2 Neutrophils % (Manual) 54 Lymphocytes % (Manual) 21 Monocytes % (Manual) 24 H Eosinophils % (Manual) 1 Platelet Estimate Normal Sodium 140 Potassium 4.0 Chloride 108 H Carbon Dioxide 24 Anion Gap 12 BUN 14 Creatinine 0.8 Est GFR ( Amer) > 60 Est GFR (Non-Af Amer) > 60 POC Glucose (mg/dL) 90 Random Glucose 93 Calcium 9.1 Phosphorus 4.6 H Magnesium 1.8 Total Bilirubin 0.4 AST 60 H ALT 84 H Alkaline Phosphatase 63 Total Protein 6.4 Albumin 3.7 Globulin 2.7 Albumin/Globulin Ratio 1.4 Assessment & Plan - Assessment and Plan (Free Text) Assessment: plan: Patient who has severe alcoholism, and is now amenable to rehab. i do not feel that he is a candidate for aeds, as his seizures are directly related to his alcoholism. All medical record entries made by the Resident were at my direction and personally dictated by me. I have reviewed the chart and agree that the record accurately reflects my personal performance of the history, physical exam, medical decision making, and the department course for this patient. I have also personally directed, reviewed, and agree with the discharge instructions and disposition.
--- NOTE | 2018-02-07 12:45 | PCM.PYCHPN ---
Addendum entered and electronically signed by Juanita Ibarra MD 02/28/18 00:08: I attest that I have seen the patient, reviewed chart and participated and agree with the note below. Original Note: Psychiatric Progress Note - Psychiatric Progress Note Patient seen today, length of contact: 18 min Patient Chief Complaint: "I feel tired." Problems Identified/Issues Discussed: Patient seen, chart reviewed, case discussed with the staff. Issues related to illness and treatment were discussed with the patient and staff. Reported compliant, however had a seizure when medications were titrated down and transferred to the med-surg unit. Patient reported feeling better with treatment. Calm and cooperative. Awake, alert, and oriented x3. No psychomotor activity, good eye contact, memory intact. Aftercare discussed with patient. Denied any delusions, auditory or visual hallucinations, suicidal ideations or homicidal ideations at the time of evaluation. Medication Change: Yes (detox changes daily) Medical Record Reviewed: Yes Mental Status Examination - Cognitive Function Orientation: Person, Place, Situation Memory: Intact Attention: WNL Concentration: WNL Association: WNL Fund of Knowledge: WNL - Mood Mood: Neutral - Affect Affect: Constricted - Speech Speech: Appropriate - Formal Thought Process Formal Thought Process: No Impairment - Suicidal Ideation Suicidal Ideation: No - Homicidal Ideation Homicidal Ideation: No Goal/Treatment Plan - Goal/Treatment Plan Need for Continued Stay: Discharge may exacerbated symptoms, Severe functional impairment Progress Toward Problem(s) and Goals/Treatment Plan: Patient education. Supportive therapy. CBT for relapse prevention. [place] for abstinence. Continue treatment as before. Patient [facility] go to [facility] for follow-up care after discharge from the hospital. All other medical management per medicine team. Estimated Date of D/C: 02/08/18 (per medical clearance) If changed, why: s/p seizure - Smoking Cessation Smoking Cessation Initiated: Yes
--- NOTE | 2018-02-07 16:49 | CP.PCM.PN ---
<Andrew Shukla - Last Filed: 02/07/18 16:50> Subjective - Date & Time of Evaluation Date of Evaluation: 02/07/18 Time of Evaluation: 09:30 - Subjective Subjective: Medicine Progress Note for Hospitalist Service Pt seen and examined at bedside this am. Denies any acute complaints, except for slight tongue swelling on the R side 2/2 to when he bit down during the seizure. Was unable to remember what happened during the seizure last night. Reported feeling tired and fatigued prior. AAOx3, able to recall all events before and a fter seizure. Denies headache, fever, chills, chest pain, sob, n/v/d/c, abd pain, urinary complaints, tremors, anxiety, motor/sensory deficits or other symptoms. Objective - Vital Signs/Intake and Output Vital Signs (last 24 hours): Temp Pulse Resp BP Pulse Ox 98 F 96 H 20 145/98 H 96 02/07/18 16:00 02/07/18 16:00 02/07/18 16:00 02/07/18 16:00 02/07/18 16:00 - Medications Medications: Current Medications Folic Acid (Folic Acid) 1 mg PO DAILY [facility] Last Admin: 02/07/18 10:29 Dose: 1 mg Gabapentin (Neurontin) 300 mg PO TID [facility] Hydroxyzine HCl (Atarax) 50 mg PO Q6H PRN PRN Reason: Anxiety Last Admin: 02/06/18 22:25 Dose: 50 mg Sodium Chloride (Sodium Chloride 0.9%) 1,000 mls @ 100 mls/hr IV .Q10H [facility] Last Admin: 02/07/18 04:22 Dose: Not Given Ibuprofen (Motrin Tab) 600 mg PO Q6H PRN PRN Reason: Pain, moderate (4-7) Lorazepam (Ativan) 1 mg PO Q4H PRN PRN Reason: Symptoms of alcohol withdrawl Last Admin: 02/06/18 09:50 Dose: 1 mg Lorazepam (Ativan) 2 mg IVP Q6H PRN PRN Reason: Seizure activity Multivitamins (Hexavitamin) 1 tab PO DAILY [facility] Last Admin: 02/07/18 10:29 Dose: 1 tab Nicotine (Nicoderm Cq) 1 patch TD DAILY [facility] Last Admin: 02/07/18 14:25 Dose: 1 patch Pneumococcal Polyvalent Vaccine (Pneumovax 23 Vaccine) 0.5 ml IM .ONCE ONE Stop: 02/09/18 14:01 Thiamine HCl (Vitamin B1 Tab) 100 mg PO DAILY [facility] Last Admin: 02/07/18 10:29 Dose: 100 mg Trazodone HCl (Desyrel) 50 mg PO HS PRN PRN Reason: Insomnia Last Admin: 02/06/18 22:24 Dose: 50 mg - Labs Labs: 02/07/18 02:41 02/07/18 02:41 - Constitutional Appears: Non-toxic, No Acute Distress - Head Exam Head Exam: ATRAUMATIC, NORMAL INSPECTION - Eye Exam Eye Exam: EOMI, Normal appearance, PERRL - ENT Exam ENT Exam: Mucous Membranes Moist - Respiratory Exam Respiratory Exam: Clear to Ausculation Bilateral, NORMAL BREATHING PATTERN. absent: Rales, Rhonchi, Wheezes - Cardiovascular Exam Cardiovascular Exam: REGULAR RHYTHM, +S1, +S2. absent: Gallop, Rubs, Murmur - GI/Abdominal Exam GI & Abdominal Exam: Soft, Normal Bowel Sounds. absent: Distended, Firm, Guarding, Rigid, Tenderness, Organomegaly, Rebound - Extremities Exam Extremities Exam: Full ROM, Normal Capillary Refill, Normal Inspection. absent: Calf Tenderness, Joint Swelling, Pedal Edema - Neurological Exam Neurological Exam: Alert, Awake, CN II-XII Intact, Normal Gait, Oriented x3, Reflexes Normal Neuro motor strength exam: Left Upper Extremity: 5, Right Upper Extremity: 5, Left Lower Extremity: 5, Right Lower Extremity: 5 - Psychiatric Exam Psychiatric exam: Normal Affect, Normal Mood. 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 Plan: New Onset Seizure -Labs wnl this am, no leukocytosis, P 2.5, Mg 1.6 -CT head w/o contrast neg for acute changes -Ativan 2mg Q6H IVP prn seizure activity -NS @ 100cc/hr -EKG NSR w/ no St-T wave changes -EEG done, f/u read -Neurology on consult, Dr Roa, help appreciated -Seizure precautions, aspiration precautions, Neuro checks q4H Alcohol dependence/Alcohol withdrawal -Alcohol levels was 287 on admission -Continue Thiamine 100mg PO daily, Folic acid 1mg PO daily, Multivitamins -CIWA protocol -Management per psych team Elevated LFTs -Likely secondary to alcohol abuse -Trending down this am -Avoid hepatotoxic agents Pt seen, examined with, and plan discussed with Dr. Beck, attending. Andrew Shukla DO PGY-1, [employer] Pager #[phone] <Sourav Beck - Last Filed: 02/07/18 17:54> Objective - Vital Signs/Intake and Output Vital Signs (last 24 hours): Temp Pulse Resp BP Pulse Ox 98 F 96 H 20 145/98 H 96 02/07/18 16:00 02/07/18 16:00 02/07/18 16:00 02/07/18 16:00 02/07/18 16:00 - Medications Medications: Current Medications Folic Acid (Folic Acid) 1 mg PO DAILY [facility] Last Admin: 02/07/18 10:29 Dose: 1 mg Gabapentin (Neurontin) 300 mg PO TID [facility] Hydroxyzine HCl (Atarax) 50 mg PO Q6H PRN PRN Reason: Anxiety Last Admin: 02/06/18 22:25 Dose: 50 mg Sodium Chloride (Sodium Chloride 0.9%) 1,000 mls @ 100 mls/hr IV .Q10H [facility] Last Admin: 02/07/18 04:22 Dose: Not Given Ibuprofen (Motrin Tab) 600 mg PO Q6H PRN PRN Reason: Pain, moderate (4-7) Lorazepam (Ativan) 1 mg PO Q4H PRN PRN Reason: Symptoms of alcohol withdrawl Last Admin: 02/06/18 09:50 Dose: 1 mg Lorazepam (Ativan) 2 mg IVP Q6H PRN PRN Reason: Seizure activity Multivitamins (Hexavitamin) 1 tab PO DAILY [facility] Last Admin: 02/07/18 10:29 Dose: 1 tab Nicotine (Nicoderm Cq) 1 patch TD DAILY [facility] Last Admin: 02/07/18 14:25 Dose: 1 patch Pneumococcal Polyvalent Vaccine (Pneumovax 23 Vaccine) 0.5 ml IM .ONCE ONE Stop: 02/09/18 14:01 Thiamine HCl (Vitamin B1 Tab) 100 mg PO DAILY [facility] Last Admin: 02/07/18 10:29 Dose: 100 mg Trazodone HCl (Desyrel) 50 mg PO HS PRN PRN Reason: Insomnia Last Admin: 02/06/18 22:24 Dose: 50 mg - Labs Labs: 02/07/18 02:41 02/07/18 02:41 Attending/Attestation - Attestation I have personally seen and examined this patient.: Yes I have fully participated in the care of the patient.: Yes I have reviewed all pertinent clinical information, including history, physical exam and plan: Yes Notes (Text): 02/07/18 17:52 Medical attending: Patient was seen and examined by me, reviewed the above note by the forensic medical examiner the above Patient was awake and alert and orientated, he was not in any acute distress. He tells us that besides biting his tongue he feels well he was not having any shaking or tremors when we saw him Currently at this moment were pending EEG and neurology evaluation Thank you very much, Sourav Beck
[2018-02-08 00:55] VITALS: TEMP 98.3
[2018-02-08] MEDS: Sodium Chloride 0.9% 1,000 ML IV SCH (04:32)
--- NOTE | 2018-02-08 07:25 | CP.PCM.PN ---
Subjective - Date & Time of Evaluation Date of Evaluation: 02/08/18 Time of Evaluation: 07:25 Objective - Vital Signs/Intake and Output Vital Signs (last 24 hours): Temp Pulse Resp BP Pulse Ox 98.3 F 85 20 120/88 99 02/07/18 23:25 02/08/18 01:00 02/07/18 23:25 02/07/18 23:25 02/07/18 23:25 - Medications Medications: Current Medications Folic Acid (Folic Acid) 1 mg PO DAILY [facility] Last Admin: 02/07/18 10:29 Dose: 1 mg Gabapentin (Neurontin) 300 mg PO TID [facility] Last Admin: 02/07/18 19:08 Dose: 300 mg Hydroxyzine HCl (Atarax) 50 mg PO Q6H PRN PRN Reason: Anxiety Last Admin: 02/06/18 22:25 Dose: 50 mg Sodium Chloride (Sodium Chloride 0.9%) 1,000 mls @ 100 mls/hr IV .Q10H [facility] Last Admin: 02/08/18 04:32 Dose: 100 mls/hr Ibuprofen (Motrin Tab) 600 mg PO Q6H PRN PRN Reason: Pain, moderate (4-7) Lorazepam (Ativan) 1 mg PO Q4H PRN PRN Reason: Symptoms of alcohol withdrawl Last Admin: 02/06/18 09:50 Dose: 1 mg Lorazepam (Ativan) 2 mg IVP Q6H PRN PRN Reason: Seizure activity Multivitamins (Hexavitamin) 1 tab PO DAILY [facility] Last Admin: 02/07/18 10:29 Dose: 1 tab Nicotine (Nicoderm Cq) 1 patch TD DAILY [facility] Last Admin: 02/07/18 14:25 Dose: 1 patch Pneumococcal Polyvalent Vaccine (Pneumovax 23 Vaccine) 0.5 ml IM .ONCE ONE Stop: 02/09/18 14:01 Thiamine HCl (Vitamin B1 Tab) 100 mg PO DAILY [facility] Last Admin: 02/07/18 10:29 Dose: 100 mg Trazodone HCl (Desyrel) 50 mg PO HS PRN PRN Reason: Insomnia Last Admin: 02/06/18 22:24 Dose: 50 mg - Labs Labs: 02/07/18 02:41 02/07/18 02:41
[2018-02-08 07:47] VITALS: BP 136/96; O2SAT 98
[2018-02-08 08:10] LABS: BASO # 0.2 K/uL (0.0-0.2); BASO % 2.1 % (0.0-2.0); EOS # 0.1 K/uL (0.0-0.7); EOS % 1.3 % (0.0-4.0); HEMOGLOBIN 12.1 g/dL (12.0-18.0); LYMPH % 22.7 % (20.0-40.0); MEAN CELL VOLUME 99.3 fL (80.0-94.0); MEAN CORPUSCULAR HEMOGLOBIN 34.4 pg (27.0-31.0); MEAN CORPUSCULAR HGB CONC 34.6 g/dL (33.0-37.0); MEAN PLATELET VOLUME 7.3 fL (7.2-11.7); MONO # 2.2 K/uL (0.0-0.8); MONO % 25.3 % (0.0-10.0); NEUT # 4.2 K/uL (1.8-7.0); NEUT % 48.6 % (50.0-75.0); NRBC % 0.1 % (0.0-2.0); PLATELET COUNT 325 K/uL (130-400); RBC 3.53 Mil/uL (4.40-5.90); RED CELL DISTRIBUTION WIDTH 13.4 % (11.5-14.5); WHITE BLOOD COUNT 8.6 K/uL (4.8-10.8)
[2018-02-08 08:28] LABS: ALB/GLOB RATIO 1.4 (1.0-2.1); ALBUMIN 3.7 g/dL (3.5-5.0); ALT/SGPT 84 U/L (21-72); AST/SGOT 60 U/L (17-59); BLOOD UREA NITROGEN 14 mg/dL (9-20); CALCIUM 9.1 mg/dl (8.6-10.4); GFR NON-AFRICAN AMERICAN > 60
[2018-02-08 09:14] LABS: EOSINOPHIL 1 % (0-4); LYMPHOCYTE 21 % (20-40); MONOCYTE 24 % (0-10); NEUTROPHIL 54 % (50-75); PLATELET ESTIMATE NORMAL (NORMAL); TOTAL CELLS COUNTED 100
[2018-02-08] MEDS: Multiple Vitamins Tab PO SCH (10:58)
--- NOTE | 2018-02-08 12:17 | CP.PCM.DIS ---
<Ashlyn Andrews P - Last Filed: 02/08/18 22:09> Provider - Provider Date of Admission: 02/01/18 12:36 Attending physician: Sourav Beck DO Consults: Dr. Roa, neurology Time Spent in preparation of Discharge (in minutes): 35 Hospital Course - Lab Results Lab Results: Most Recent Lab Values WBC 8.6 K/uL (4.8-10.8) 02/08/18 07:50 RBC 3.53 Mil/uL (4.40-5.90) L 02/08/18 07:50 Hgb 12.1 g/dL (12.0-18.0) 02/08/18 07:50 Hct 35.1 % (35.0-51.0) 02/08/18 07:50 MCV 99.3 fL (80.0-94.0) H 02/08/18 07:50 MCH 34.4 pg (27.0-31.0) H 02/08/18 07:50 MCHC 34.6 g/dL (33.0-37.0) 02/08/18 07:50 RDW 13.4 % (11.5-14.5) 02/08/18 07:50 Plt Count 325 K/uL (130-400) 02/08/18 07:50 MPV 7.3 fL (7.2-11.7) 02/08/18 07:50 Neut % (Auto) 48.6 % (50.0-75.0) L 02/08/18 07:50 Lymph % (Auto) 22.7 % (20.0-40.0) 02/08/18 07:50 Kidder % (Auto) 25.3 % (0.0-10.0) H 02/08/18 07:50 Eos % (Auto) 1.3 % (0.0-4.0) 02/08/18 07:50 Baso % (Auto) 2.1 % (0.0-2.0) H 02/08/18 07:50 Neut # (Auto) 4.2 K/uL (1.8-7.0) 02/08/18 07:50 Lymph # (Auto) 2.0 K/uL (1.0-4.3) 02/08/18 07:50 Kidder # (Auto) 2.2 K/uL (0.0-0.8) H 02/08/18 07:50 Eos # (Auto) 0.1 K/uL (0.0-0.7) 02/08/18 07:50 Baso # (Auto) 0.2 K/uL (0.0-0.2) 02/08/18 07:50 Neutrophils % (Manual) 54 % (50-75) 02/08/18 07:50 Lymphocytes % (Manual) 21 % (20-40) 02/08/18 07:50 Monocytes % (Manual) 24 % (0-10) H 02/08/18 07:50 Eosinophils % (Manual) 1 % (0-4) 02/08/18 07:50 Platelet Estimate Normal (NORMAL) 02/08/18 07:50 Sodium 140 mmol/L (132-148) 02/08/18 07:50 Potassium 4.0 mmol/L (3.6-5.2) 02/08/18 07:50 Chloride 108 mmol/L (98-107) H 02/08/18 07:50 Carbon Dioxide 24 mmol/L (22-30) 02/08/18 07:50 Anion Gap 12 (10-20) 02/08/18 07:50 BUN 14 mg/dL (9-20) 02/08/18 07:50 Creatinine 0.8 mg/dL (0.8-1.5) 02/08/18 07:50 Est GFR ( Amer) > 60 02/08/18 07:50 Est GFR (Non-Af Amer) > 60 02/08/18 07:50 POC Glucose (mg/dL) 90 mg/dL (65-110) 02/08/18 06:11 Random Glucose 93 mg/dL (75-110) 02/08/18 07:50 Calcium 9.1 mg/dl (8.6-10.4) 02/08/18 07:50 Phosphorus 4.6 mg/dL (2.5-4.5) H 02/08/18 07:50 Magnesium 1.8 mg/dL (1.6-2.3) 02/08/18 07:50 Total Bilirubin 0.4 mg/dL (0.2-1.3) 02/08/18 07:50 AST 60 U/L (17-59) H 02/08/18 07:50 ALT 84 U/L (21-72) H 02/08/18 07:50 Alkaline Phosphatase 63 U/L (38-126) 02/08/18 07:50 Ammonia 34 umol/L (9-33) H 02/03/18 14:20 Total Protein 6.4 g/dL (6.3-8.3) 02/08/18 07:50 Albumin 3.7 g/dL (3.5-5.0) 02/08/18 07:50 Globulin 2.7 gm/dL (2.2-3.9) 02/08/18 07:50 Albumin/Globulin Ratio 1.4 (1.0-2.1) 02/08/18 07:50 Urine Color Zita (YELLOW) 02/01/18 10:27 Urine Clarity Hazy (Clear) 02/01/18 10:27 Urine pH 5.0 (5.0-8.0) 02/01/18 10:27 Ur Specific Leslie 1.025 (1.003-1.030) 02/01/18 10:27 Urine Protein 3+ mg/dL (NEGATIVE) H 02/01/18 10:27 Urine Glucose (UA) Normal mg/dL (Normal) 02/01/18 10:27 Urine Ketones 1+ mg/dL (NEGATIVE) H 02/01/18 10:27 Urine Blood Negative (NEGATIVE) 02/01/18 10:27 Urine Nitrate Negative (NEGATIVE) 02/01/18 10:27 Urine Bilirubin 1+ (NEGATIVE) H 02/01/18 10:27 Urine Urobilinogen 4.0 mg/dL (0.2-1.0) 02/01/18 10:27 Ur Leukocyte Esterase 1+ Tonio/uL (Negative) H 02/01/18 10:27 Urine WBC (Auto) 9 /hpf (0-5) H 02/01/18 10:27 Urine RBC (Auto) 2 /hpf (0-3) 02/01/18 10:27 Ur Squamous Epith Cells 1 /hpf (0-5) 02/01/18 10:27 Urine Bacteria Rare (<OCC) 02/01/18 10:27 Hyaline Casts >20 /lpf (0-2) H 02/01/18 10:27 Urine Opiates Screen Negative (NEGATIVE) 02/01/18 10:27 Urine Methadone Screen Negative (NEGATIVE) 02/01/18 10:27 Ur Barbiturates Screen Negative (NEGATIVE) 02/01/18 10:27 Ur Phencyclidine Scrn Negative (NEGATIVE) 02/01/18 10:27 Ur Amphetamines Screen Negative (NEGATIVE) 02/01/18 10:27 U Benzodiazepines Scrn Negative (NEGATIVE) 02/01/18 10:27 U Oth Cocaine Metabols Negative (NEGATIVE) 02/01/18 10:27 U Cannabinoids Screen Negative (NEGATIVE) 02/01/18 10:27 Alcohol, Quantitative 287 mg/dl (0-10) H 02/01/18 10:27 - Hospital Course Hospital Course: On admission: 47 year old male with past medical history of alcohol dependence who presented to the hospital requesting detox from alcohol. His last drink was the morning of 02/01/18. While on the detox unit, rapid response was called for new onset seizure (refer to JUNIOR ART DIRECTOR note for more details). Patient was given Ativan 2mg IM x 1. Patient does not have a history of seizure disorder. Post seizure activity, patient states that he wasn't feeling well. He does not recall the events that occurred. He does admit to having pain on the right side of his tongue. Denies any loss of bowel or bladder function. Patient states that he has never had a seizure in the past. Denies headaches, dizziness, cp, palpitations, son, abdominal pain, urinary symptoms, changes in bowel habits. Hospital Course: Patient was transferred to hospitalist service for new onset seizure. CT Head was negative for acute intracranial abnormality (see full reprot). EKG showed NSR without ST changes. Patient was treated with Ativan and IVF. Symptoms completely resolved without new occurrences. CIWA protocol was followed. EEG was performed and results are pending. Patient adamantly requesting to be discharged prior to results. Patient stable for discharge. Discharge instructions: Patient is stable for discharge as per Dr. Beck. Patient is to follow up with their primary care physician. If patient does not have a primary care physician, he may follow up with the [facility]. Call [phone] to make an appointment. Patient is recommended to attend and IOP or rehab program and AA meetings. It is important that you stop alcohol use. Return to emergency room if you experience new or worsening symptoms. Discharge Hotline Numbers: [place] [facility] 24 Hour Hotline: 2-604-150 HELP (4306) AA- Alcoholics Anonymous 24 Hour Hotline: 4-180-273- 1474 NA- Narcotics Anonymous 24 Hour Hotline: [place] [facility] Hot[place] - [place] If needed you can reach the detox unit at Avoid all mood and mind altering substances including alcohol. Make every effort to make 90 meetings in 90 days and obtain a sponsor and get involved in 12 step recovery. Follow up with you primary doctor for your medical needs Discharge Medications: Nutrition: Eat balanced meals incorporating fruits, vegetables and protein. Drink plenty of water throughout the day at least 8 to 10 cups. Sleep is extremely important in your recovery. Follow Up Appointments: [facility] [address] [place] [address] Appointment: Wednesday02/07/18 @ 11am Discharge Exam - Head Exam Head Exam: ATRAUMATIC, NORMAL INSPECTION - Eye Exam Eye Exam: EOMI, PERRL - ENT Exam ENT Exam: Mucous Membranes Moist - Neck Exam Neck exam: Full Rom, Normal Inspection - Respiratory Exam Respiratory Exam: Clear to PA & Lateral. absent: Rales, Rhonchi, Wheezes - Cardiovascular Exam Cardiovascular Exam: REGULAR RHYTHM, +S1, +S2 - GI/Abdominal Exam GI & Abdominal Exam: Normal Bowel Sounds, Soft. absent: Tenderness - Neurological Exam Neurological exam: Alert, CN II-XII Intact, Oriented x3 - Psychiatric Exam Psychiatric exam: Anxious - Skin Skin Exam: Dry, Intact, Normal Color, Warm Discharge Plan - Follow Up Plan Condition: STABLE Disposition: HOME/ ROUTINE Instructions: Alcohol Withdrawal (DC), Alcohol Abuse and Alcoholism (DC) Additional Instructions: Patient is stable for discharge as per Dr. Beck. Patient is to follow up with their primary care physician. If patient does not have a primary care physician, he may follow up with the [facility]. Call [phone] to make an appointment. Patient is recommended to attend and [facility] or rehab program and AA meetings. It is important that you stop alcohol use. Return to emergency room if you experience new or worsening symptoms. Discharge Hotline Numbers: [place] [facility] 24 Hour Hotline: 7-601-415 HELP (0747) AA- Alcoholics Anonymous 24 Hour Hotline: 8-623-208- 3040 NA- Narcotics Anonymous 24 Hour Hotline: [place] [facility] [place] - [place] If needed you can reach the detox unit at Avoid all mood and mind altering substances including alcohol. Make every effort to make 90 meetings in 90 days and obtain a sponsor and get involved in 12 step recovery. Follow up with you primary doctor for your medical needs Discharge Medications: Nutrition: Eat balanced meals incorporating fruits, vegetables and protein. Drink plenty of water throughout the day at least 8 to 10 cups. Sleep is extremely important in your recovery. Follow Up Appointments: [facility] [address] [place] [address] Appointment: Wednesday02/07/18 @ 11am Transportation: Family Referrals: Andrea Ortega MD [Staff Provider] - Genoveva Roa MD [Staff Provider] - <Sourav Beck - Last Filed: 02/09/18 07:27> Provider - Provider Date of Admission: 02/01/18 12:36 Attending physician: Sourav Beck DO Hospital Course - Lab Results Lab Results: Most Recent Lab Values WBC 8.6 K/uL (4.8-10.8) 02/08/18 07:50 RBC 3.53 Mil/uL (4.40-5.90) L 02/08/18 07:50 Hgb 12.1 g/dL (12.0-18.0) 02/08/18 07:50 Hct 35.1 % (35.0-51.0) 02/08/18 07:50 MCV 99.3 fL (80.0-94.0) H 02/08/18 07:50 MCH 34.4 pg (27.0-31.0) H 02/08/18 07:50 MCHC 34.6 g/dL (33.0-37.0) 02/08/18 07:50 RDW 13.4 % (11.5-14.5) 02/08/18 07:50 Plt Count 325 K/uL (130-400) 02/08/18 07:50 MPV 7.3 fL (7.2-11.7) 02/08/18 07:50 Neut % (Auto) 48.6 % (50.0-75.0) L 02/08/18 07:50 Lymph % (Auto) 22.7 % (20.0-40.0) 02/08/18 07:50 Kidder % (Auto) 25.3 % (0.0-10.0) H 02/08/18 07:50 Eos % (Auto) 1.3 % (0.0-4.0) 02/08/18 07:50 Baso % (Auto) 2.1 % (0.0-2.0) H 02/08/18 07:50 Neut # (Auto) 4.2 K/uL (1.8-7.0) 02/08/18 07:50 Lymph # (Auto) 2.0 K/uL (1.0-4.3) 02/08/18 07:50 Kidder # (Auto) 2.2 K/uL (0.0-0.8) H 02/08/18 07:50 Eos # (Auto) 0.1 K/uL (0.0-0.7) 02/08/18 07:50 Baso # (Auto) 0.2 K/uL (0.0-0.2) 02/08/18 07:50 Neutrophils % (Manual) 54 % (50-75) 02/08/18 07:50 Lymphocytes % (Manual) 21 % (20-40) 02/08/18 07:50 Monocytes % (Manual) 24 % (0-10) H 02/08/18 07:50 Eosinophils % (Manual) 1 % (0-4) 02/08/18 07:50 Platelet Estimate Normal (NORMAL) 02/08/18 07:50 Sodium 140 mmol/L (132-148) 02/08/18 07:50 Potassium 4.0 mmol/L (3.6-5.2) 02/08/18 07:50 Chloride 108 mmol/L (98-107) H 02/08/18 07:50 Carbon Dioxide 24 mmol/L (22-30) 02/08/18 07:50 Anion Gap 12 (10-20) 02/08/18 07:50 BUN 14 mg/dL (9-20) 02/08/18 07:50 Creatinine 0.8 mg/dL (0.8-1.5) 02/08/18 07:50 Est GFR ( Amer) > 60 02/08/18 07:50 Est GFR (Non-Af Amer) > 60 02/08/18 07:50 POC Glucose (mg/dL) 151 mg/dL (65-110) H 02/08/18 11:09 Random Glucose 93 mg/dL (75-110) 02/08/18 07:50 Calcium 9.1 mg/dl (8.6-10.4) 02/08/18 07:50 Phosphorus 4.6 mg/dL (2.5-4.5) H 02/08/18 07:50 Magnesium 1.8 mg/dL (1.6-2.3) 02/08/18 07:50 Total Bilirubin 0.4 mg/dL (0.2-1.3) 02/08/18 07:50 AST 60 U/L (17-59) H 02/08/18 07:50 ALT 84 U/L (21-72) H 02/08/18 07:50 Alkaline Phosphatase 63 U/L (38-126) 02/08/18 07:50 Ammonia 34 umol/L (9-33) H 02/03/18 14:20 Total Protein 6.4 g/dL (6.3-8.3) 02/08/18 07:50 Albumin 3.7 g/dL (3.5-5.0) 02/08/18 07:50 Globulin 2.7 gm/dL (2.2-3.9) 02/08/18 07:50 Albumin/Globulin Ratio 1.4 (1.0-2.1) 02/08/18 07:50 Urine Color Zita (YELLOW) 02/01/18 10:27 Urine Clarity Hazy (Clear) 02/01/18 10: Urine pH 5.0 (5.0-8.0) 02/01/18 10: Ur Specific Leslie 1.025 (1.003-1.030) 02/01/18 10: Urine Protein 3+ mg/dL (NEGATIVE) H 02/01/18 10: Urine Glucose (UA) Normal mg/dL (Normal) 02/01/18 10:27 Urine Ketones 1+ mg/dL (NEGATIVE) H 02/01/18 10:27 Urine Blood Negative (NEGATIVE) 02/01/18 10:27 Urine Nitrate Negative (NEGATIVE) 02/01/18 10:27 Urine Bilirubin 1+ (NEGATIVE) H 02/01/18 10:27 Urine Urobilinogen 4.0 mg/dL (0.2-1.0) 02/01/18 10:27 Ur Leukocyte Esterase 1+ Tonio/uL (Negative) H 02/01/18 10:27 Urine WBC (Auto) 9 /hpf (0-5) H 02/01/18 10:27 Urine RBC (Auto) 2 /hpf (0-3) 02/01/18 10:27 Ur Squamous Epith Cells 1 /hpf (0-5) 02/01/18 10:27 Urine Bacteria Rare (<OCC) 02/01/18 10:27 Hyaline Casts >20 /lpf (0-2) H 02/01/18 10:27 Urine Opiates Screen Negative (NEGATIVE) 02/01/18 10:27 Urine Methadone Screen Negative (NEGATIVE) 02/01/18 10:27 Ur Barbiturates Screen Negative (NEGATIVE) 02/01/18 10:27 Ur Phencyclidine Scrn Negative (NEGATIVE) 02/01/18 10:27 Ur Amphetamines Screen Negative (NEGATIVE) 02/01/18 10:27 U Benzodiazepines Scrn Negative (NEGATIVE) 02/01/18 10:27 U Oth Cocaine Metabols Negative (NEGATIVE) 02/01/18 10:27 U Cannabinoids Screen Negative (NEGATIVE) 02/01/18 10:27 Alcohol, Quantitative 287 mg/dl (0-10) H 02/01/18 10:27 Attending/Attestation - Attestation I have personally seen and examined this patient.: Yes I have fully participated in the care of the patient.: Yes I have reviewed all pertinent clinical information, including history, physical exam and plan: Yes Notes (Text): 02/09/18 07:27 Medical attending: Patient was seen and examined by me, right reviewed the above note by the medical record consultant and agree with the above note. Patient was actively walking about in the room and in the hallway. He said he had no difficulties walking. On exam he did not have any tremors in the extremities. He reported having no issues overnight. His only concern was the area where he bit his tongue on the right lateral border. It is not bleeding. He is not having any difficulty eating. He is tolerating his diet fine He was very eager to leave so will discharge and we had a discussion about continuing his alcohol consumption does put him at risk for a lot of health complications in the future. The patient reported that he understands. Thank you very much Sourav Beck
[2018-02-08 16:02] VITALS: PULSE 81
--- NOTE | 2018-02-09 12:50 | CARD ---
APPROVED REPORT Date of service: 02/07/2018 EKG Measurement Heart [id number] <Conclusion> Normal sinus rhythm Normal ECG
[2018-02-09] MEDS ORDERED: Pneumococcal 23-Valent Vaccine IM ONE (14:00)
== END 2018-02-08 15:14 | disposition home or self-care (01) | DRG 772 ==
LOC: C.ER 09:46 → C.7D 12:36 → C.6T 02-07 00:39
PROVIDERS: ADMIT Hospitalist; ATTEND Hospitalist
PROC: HZ2ZZZZ Detoxification Services for Substance Abuse Treatment (ICD-10-PCS; principal; 2018-02-01)
PROC: HZ52ZZZ Individual Psychotherapy for Substance Abuse Treatment, Cognitive-Behavioral (ICD-10-PCS; 2018-02-01)
PROC: HZ59ZZZ Individual Psychotherapy for Substance Abuse Treatment, Supportive (ICD-10-PCS; 2018-02-01)
PROC: HZ56ZZZ Individual Psychotherapy for Substance Abuse Treatment, Psychoeducation (ICD-10-PCS; 2018-02-01)
PROC: HZ42ZZZ Group Counseling for Substance Abuse Treatment, Cognitive-Behavioral (ICD-10-PCS; 2018-02-01)
PROC: HZ46ZZZ Group Counseling for Substance Abuse Treatment, Psychoeducation (ICD-10-PCS; 2018-02-01)
PROC: GZHZZZZ Group Psychotherapy (ICD-10-PCS; 2018-02-01)
PROC: GZ58ZZZ Individual Psychotherapy, Cognitive-Behavioral (ICD-10-PCS; 2018-02-01)
PROC: GZ56ZZZ Individual Psychotherapy, Supportive (ICD-10-PCS; 2018-02-01)
DX: F10.239 Alcohol dependence with withdrawal, unspecified (principal); G40.509 Epileptic seizures related to external causes, not intractable, without status epilepticus; F41.9 Anxiety disorder, unspecified; Y90.8 Blood alcohol level of 240 mg/100 ml or more; F17.210 Nicotine dependence, cigarettes, uncomplicated